=== PATIENT | female | born 1975 | race Caucasian/White ===

== ENCOUNTER → 2019-03-06 | Day surgery (SDC) | payer OTHER | LOC: FRADUS-SUR 12:19 ==

== ENCOUNTER 2019-08-19 07:33 | Emergency (ER) | payer OTHER ==
[2019-08-19 07:46] VITALS: BP 146/84; PULSE 79; TEMP 98.1; BMI 32.3
[2019-08-19] MEDS ORDERED: LORATADINE 10 MG TABLET PO ONE (08:37)
[2019-08-19] MEDS ORDERED: LORATADINE 10 MG TABLET ONE (08:41)
--- NOTE | 2019-08-19 09:10 | PDOC ---
History of Present Illness - General Chief Complaint: Rash Stated Complaint: RASH Time Seen by Provider: 08/19/19 08:23 History Source: Patient - History of Present Illness Timing/Duration: reports: other Location: reports: other (axilla, groin) Past History - Past Medical History Allergies/Adverse Reactions: Allergies Allergy/AdvReac Type Severity Reaction Status Date / Time doxycycline Allergy Verified 02/11/16 10:56 Penicillins Allergy Verified 02/11/16 10:56 Home Medications: Ambulatory Orders Clotrimazole [Alevazol] 56.7 gm TP BID 14 Days #1 oint...g. 08/19/19 Loratadine [Claritin] 10 mg PO DAILY #10 tablet 08/19/19 Asthma: Yes COPD: No - Immunization History Immunization Up to Date: No - Psycho Social/Smoking Cessation Hx Smoking Status: No Smoking History: Never smoked Have you smoked in the past 12 months: No Number of Cigarettes Smoked Daily: 0 Information on smoking cessation initiated: No Hx Alcohol Use: No Drug/Substance Use Hx: No Substance Use Type: None Review of Systems - Review of Systems Constitutional: No: Chills, Fever Integumentary: Yes: Pruritus, Rash *Physical Exam - Vital Signs Last Vital Signs Temp Pulse Resp BP Pulse Ox 98.1 F 79 18 146/84 99 08/19/19 07:41 08/19/19 07:41 08/19/19 07:41 08/19/19 07:41 08/19/19 07:41 - Physical Exam General Appearance: Yes: Appropriately Dressed. No: Apparent Distress HEENT: positive: Normal Voice Neck: positive: Supple Respiratory/Chest: negative: Respiratory Distress Integumentary: positive: Dry, Warm, Rash (erythematous scaly patch and plaque to b/l axilla and R groin c/w tinea) Neurologic: positive: Fully Oriented, Alert, Normal Mood/Affect Medical Decision Making - Medical Decision Making 08/19/19 08:41 43-year-old female, no significant history, here with intensely pruritic rash to bilateral axilla and right groin x 3 days ago. Patient states shortly before onset of symptoms she had used a very old razor she had to shave affected sites and also started using a new deodorant. No history of similar rash see exam Possibly tinea corporis Erythematous scaly patch/plaque to axilla b/l and R groin Dc w/ clotrimazole To refrain from using new deodorant and razor given hx To return as needed Discharge - Discharge Information Problems reviewed: Yes Clinical Impression/Diagnosis: Rash Condition: Stable Disposition: HOME - Additional Discharge Information Prescriptions: Clotrimazole [Alevazol] 56.7 gm TP BID 14 Days #1 oint...g. Loratadine [Claritin] 10 mg PO DAILY #10 tablet - Follow up/Referral Referrals: Alejandro Nicole MD [Primary Care Provider] - - Patient Discharge Instructions Patient Printed Discharge Instructions: Tinea Cruris: AKA Matt Itch, DI for Tinea Corporis Additional Instructions: The cause of your symptoms might either be irritative versus allergic versus fungal Refrain from using new deodorant or current razor Apply clotrimazole as directed Take Claritin as needed for itching If symptoms persist and or worsen, return to ER - Post Discharge Activity
== END 2019-08-19 08:45 | disposition home or self-care (01) ==
LOC: JERFT 07:33 → JER 07:33 → JERFT 08:45
DX: R21 Rash and other nonspecific skin eruption (principal); Z88.0 Allergy status to penicillin; Z88.8 Allergy status to other drugs, medicaments and biological substances
CPT/HCPCS: 99281-25